=== PATIENT | male | born 1990 | race Caucasian/White ===

== ENCOUNTER 2018-04-03 18:03 | Emergency (ER) | payer OTHER ==
[2018-04-03 18:29] VITALS: BP 136/67
--- NOTE | 2018-04-03 18:41 | EDPHY ---
H & P Stated Complaint: l arm pain after to much bending this weekend. Denies ree Time Seen by Provider: 04/03/18 18:07 HPI/ROS: 27 yo M presents c/o left arm pain when he flexes his elbow, he played guitar in several shows last weekend and went running and has had pain since that time primarily limited to when flexing his elbow. He sometimes notice pain on the ulnar side of his forearm and into his wrist, bending his wrist does not excacerbate the pain , he also sometimes has tingling into his middle finger and ulnar palm. No swelling, no falls. Review of systems As per HPI General no fever no chills no weakness HEENT no eye pain no eye discharge. No eye redness, no sore throat Respiratory no cough, no shortness of breath Cardiac no chest pain, no peripheral edema GI no abdominal pain, no diarrhea, no constipation, no nausea, no vomiting no flank pain, no hematuria, no dysuria Musculoskeletal no myalgias, positive joint pain Heme no easy bruising, no easy bleeding Endo no polyuria, no polydipsia Skin no rashes, no pruritus Neuro no syncope, no dizziness, no headaches Source: Patient Exam Limitations: No limitations - Personal History Current Tetanus/Diphtheria Vaccine: Yes Current Tetanus Diphtheria and Acellular Pertussis (TDAP): Yes - Medical/Surgical History Hx Asthma: No Hx Chronic Respiratory Disease: No Hx Diabetes: No Hx Cardiac Disease: No Hx Renal Disease: No Hx Cirrhosis: No Hx Alcoholism: No Hx HIV/AIDS: No Hx Splenectomy or Spleen Trauma: No Other PMH: denies - Family History Significant Family History: No pertinent family hx - Social History Smoking Status: Unknown if ever smoked Alcohol Use: Occasionally Drug Use: None - Physical Exam Exam: 27-year-old male Alert and oriented in no acute distress nontoxic appearance, afebrile Atraumatic normocephalic Neck no JVD Lungs clear to auscultation, no respiratory distress Heart regular rate and rhythm Extremities no cyanosis clubbing edema Left elbow-full range of motion, no deformity no discoloration, nontender to palpation forearm no swelling or discoloration, ulnar and radial pulses intact, wrist full range of motion nontender Negative Phalen's 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, good capillary refill Constitutional: Initial Vital Signs Temperature (C) 36.6 C 04/03/18 18:18 Heart Rate 86 04/03/18 18:18 Respiratory Rate 12 04/03/18 18:18 Blood Pressure 142/87 H 04/03/18 18:18 O2 Sat (%) 98 04/03/18 18:18 O2 Delivery Mode Room Air Allergies/Adverse Reactions: Penicillins Allergy (Verified 04/03/18 18:23) Home Medications: Medication Instructions Recorded methylPREDNISolone [Medrol Dose 4 mg PO DAILY 6 Days #1 pkg 04/03/18 Isidoro] Medical Decision Making ED Course/Re-evaluation: Patient seen and evaluated for intermittent left arm pain with flexion that sometimes radiates into the ulnar aspect of his forearm and palm. Impression Cubital tunnel syndrome, ulnar neuropathy at the elbow Plan Rest, ice, elevation Limits elbow flexion Medrol Dosepak Follow-up with Orthopedics if not improving Differential Diagnosis: Differential diagnosis considered but not limited to Ulnar neuropathy at the elbow, ulnar neuropathy at the wrist, carpal tunnel syndrome, cubital tunnel syndrome, tennis elbow Departure - Departure Disposition: Home, Routine, Self-Care Clinical Impression: Cubital tunnel syndrome on left Condition: Good Instructions: Cubital Tunnel Syndrome (ED) Referrals: NONE *PRIMARY CARE P,. [Primary Care Provider] - As per Instructions Yusuf Valle MD [Medical Doctor] - As per Instructions Vinh Gusman MD [Medical Doctor] - As per Instructions Prescriptions: methylPREDNISolone [Medrol Dose Isidoro] 4 mg PO DAILY 6 Days #1 pkg
== END 2018-04-03 18:44 | disposition home or self-care (01) ==
LOC: CED 18:03
DX: M79.622 Pain in left upper arm (principal); G56.22 Lesion of ulnar nerve, left upper limb
CPT/HCPCS: 99283-ER